=== PATIENT | female | born 2000 | race Caucasian/White ===

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

== ENCOUNTER 2021-10-22 22:34 | Emergency (ER) | payer OTHER ==
[~2021-10-22] VITALS: Ht 149.9 cm; Wt 45.4 kg
[2021-10-22 22:39] VITALS: BP 140/85
--- NOTE | 2021-10-22 23:32 | NUR ---
Dr. Honeycutt at [facility] to exam patient.
[2021-10-23] MEDS ORDERED: diphenhydrAMINE 50 MG/ML VIAL IM ONE (01:00)
[2021-10-23] MEDS ORDERED: methylPREDNISolone SS 125 MG/2 ML VIAL IM ONE (01:00)
[2021-10-23] MEDS ORDERED: FAMOTIDINE 20 MG TAB PO ONE (01:00)
[2021-10-23] MEDS ORDERED: EPIN1KIT32 IM (01:10)
[2021-10-23] MEDS ORDERED: DIPH25TA53 PO (01:10)
[2021-10-23] MEDS ORDERED: FAMO-90 PO (01:10)
[2021-10-23] MEDS ORDERED: PRED20TA6 PO (01:10)
[2021-10-23 02:06] VITALS: BP 108/70
--- NOTE | 2021-10-23 02:06 | NUR ---
Patient discharged with v/s stable. Written and verbal after care instructions given and explained. Patient alert, oriented and verbalized understanding of instructions. Ambulatory with steady gait. All questions addressed prior to discharge. ID band removed. Patient advised to follow up with PMD. Rx of Benadryl, Epipen 2-pack, Pepcid and Prednisone given. Patient educated on indication of medication including possible reaction and side effects. Opportunity to ask questions provided and answered.
== END 2021-10-23 02:06 | disposition home or self-care (01) ==
LOC: MED 22:34
DX: L50.9 Urticaria, unspecified (principal)
CPT/HCPCS: 81025; 96372; 99284; J1200; J2930